=== PATIENT | male | born 2000 | race Caucasian/White ===

== ENCOUNTER 2019-09-01 17:18 | Emergency (ER) | payer SELFPAY ==
[2019-09-01 17:27] VITALS: BP 125/85; TEMP 97.6
[2019-09-01] MEDS ORDERED: IPRATROPIUM/ALBUTEROL 3 ML VIAL NEB ONE (17:27)
[2019-09-01] MEDS ORDERED: predniSONE 20 MG TAB PO ONE (17:45)
[2019-09-01] MEDS ORDERED: CETIRIZINE HCL 10 MG TAB PO ONE (17:45)
[2019-09-01] MEDS ORDERED: MONTELUKAST 10 MG TAB PO ONE (17:45)
--- NOTE | 2019-09-01 17:47 | ED.PDOC ---
History of Present Illness - General Chief Complaint: Respiratory Problem Time Seen by Provider: 09/01/19 17:27 Source: patient Exam Limitations: no limitations - History of Present Illness Initial Comments: the patient is a 18-year-old male presenting to the emergency room secondary to shortness of breath. Patient has been having a difficult time breathing last few days. He has never been diagnosed with asthma but he does definitely have seasonal allergies. He has had episodes of shortness of breath past. No fever. No productive cough. Nares are blue and boggy with clear rhinorrhea. Posterior oropharynx is clear. He does have scattered wheezes and decreased air movement bilaterally. Timing/Duration: other - 3 days Severity: moderate Improving Factors: nothing Worsening Factors: nothing Associated Symptoms: cough, shortness of breath Allergies/Adverse Reactions: Allergies NO KNOWN ALLERGY Allergy (Verified 09/01/19 17:27) Home Medications: Ambulatory Orders Albuterol Inhaler [Ventolin Hfa Inhaler] 2 puff INH Q4H PRN #1 inh 09/01/19 Montelukast [Singulair] 10 mg PO DAILY #14 tab 09/01/19 predniSONE [Prednisone] 20 mg PO DAILY #3 tab 09/01/19 Review of Systems - Review of Systems Constitutional: States: no symptoms reported EENTM: States: see HPI Respiratory: States: see HPI Cardiology: States: no symptoms reported Gastrointestinal/Abdominal: States: no symptoms reported Genitourinary: States: no symptoms reported Musculoskeletal: States: no symptoms reported Skin: States: no symptoms reported Neurological: States: no symptoms reported Endocrine: States: no symptoms reported Hematologic/Lymphatic: States: no symptoms reported All other Systems: No Change from Baseline Past Medical History (General) - Patient Medical History Hx Stroke: No Hx Congestive Heart Failure: No Hx Diabetes: No - Vaccination History Hx Influenza Vaccination: No Hx Pneumococcal Vaccination: No - Social History Hx Tobacco Use: Yes Hx Alcohol Use: Yes - Social use Family Medical History - Family History Father Family History: Unknown Living Status: Still Living Physical Exam - Physical Exam General Appearance: Alert, Comfortable, No apparent distress Eye Exam: bilateral normal Ears, Nose, Throat: hearing grossly normal, normal pharynx, nasal congestion Neck: full range of motion, supple Respiratory: lungs clear, normal breath sounds, no respiratory distress, no accessory muscle use Cardiovascular/Chest: normal peripheral pulses, regular rate, rhythm, no edema Peripheral Pulses: radial,right: 2+, radial,left: 2+ Gastrointestinal/Abdominal: non tender, soft Rectal Exam: deferred Back Exam: no CVA tenderness, no vertebral tenderness Extremity: non-tender, normal inspection, no pedal edema, normal capillary refill 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 The patient does most likely have allergy induced asthma. He is going to be written for an albuterol inhaler to use 3 puffs every couple of hours if needed. he will also be written for 3 days of oral prednisone and 2 weeks of oral Singulair for the asthma and allergies. 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 additionally the patient does have a fever blister in the right nostril. He was given 1 dose of Valtrex in treatment for it here today. the patient needs to wait until the fever blister in his nose has cleared up before he uses the Singulair, Rhinocort or Flonase. He can also pick and shovel worker [id number] daily Zyrtec to take once daily to help reduce his allergies. ER warnings were given. follow-up with primary care doctor next week. no smoking or vaping. luis felipe valencia [phone] 09/01/19 17:57 - Results/Orders Results/Orders: two-view chest x-ray shows no significant infiltrate. He does have some air trapping. Departure - Departure Clinical Impression: Herpes labialis without complication Asthma with exacerbation Qualifiers: Asthma severity: moderate Asthma persistence: unspecified Qualified Code(s): J45.901 - Unspecified asthma with (acute) exacerbation Allergic rhinitis Qualifiers: Allergic rhinitis trigger: unspecified Allergic rhinitis seasonality: seasonal Qualified Code(s): J30.2 - Other seasonal allergic rhinitis Disposition: Discharge to Home or Self Care Condition: Fair Departure Forms: ED Discharge - Pt. Copy, Patient Portal Self Enrollment Instructions: DI for Asthma -- Adult, Seasonal Allergies (DC), Cold Sores (Oral Herpes) (DC) Diet: regular diet Activity: increase activity as tolerated Prescriptions: Albuterol Inhaler [Ventolin Hfa Inhaler] 2 puff INH Q4H PRN #1 inh PRN Reason: Shortness Of Breath Montelukast [Singulair] 10 mg PO DAILY #14 tab predniSONE [Prednisone] 20 mg PO DAILY #3 tab Home Medications: Ambulatory Orders Albuterol Inhaler [Ventolin Hfa Inhaler] 2 puff INH Q4H PRN #1 inh 09/01/19 Montelukast [Singulair] 10 mg PO DAILY #14 tab 09/01/19 predniSONE [Prednisone] 20 mg PO DAILY #3 tab 09/01/19 Additional Instructions: the patient is a 18-year-old male with what appears to be a reactive airway exacerbation. The patient does most likely have allergy induced asthma. He is going to be written for an albuterol inhaler to use 3 puffs every couple of hours if needed. he will also be written for 3 days of oral prednisone and 2 weeks of oral Singulair for the asthma and allergies. He can also pick and shovel worker [id number] Rhinocort or Flonase nasal spray to use 1 spray per nostril twice daily for his allergic rhinitis. additionally the patient does have a fever blister in the right nostril. He was given 1 dose of Valtrex in treatment for it here today. the patient needs to wait until the fever blister in his nose has cleared up before he uses the Singulair, Rhinocort or Flonase. He can also pick and shovel worker [id number] daily Zyrtec to take once daily to help reduce his allergies. ER warnings were given. follow-up with primary care doctor next week. no smoking or vaping.
--- NOTE | 2019-09-01 17:52 | RAD ---
EXAM DESCRIPTION: Chest,2 Views CLINICAL HISTORY: sob, 3 days COMPARISON: None TECHNIQUE: PA/lateral FINDINGS: There is no acute appearing cardiac or pulmonary abnormality. Heart size is normal with normal pulmonary vascularity. No pleural effusion or pneumothorax. Lungs are hyperexpanded with no consolidating infiltrate. Lateral view shows intact sternum and T-spine. IMPRESSION: Hyperexpanded lungs. No consolidating infiltrate. Electronically signed by: Mk Bueno MD 09/01/2019 5:50 PM [employer]PER[employer]
[2019-09-01] MEDS ORDERED: valACYclovir 500 MG TAB PO ONE (17:56)
[2019-09-01 19:10] VITALS: O2SAT 95
== END 2019-09-01 18:24 | disposition home or self-care (01) ==
LOC: ER 17:18
DX: J45.901 Unspecified asthma with (acute) exacerbation (principal); J30.2 Other seasonal allergic rhinitis; B00.1 Herpesviral vesicular dermatitis; Z87.891 Personal history of nicotine dependence
CPT/HCPCS: 71046; 94640; J7512; J7620

== ENCOUNTER 2019-09-13 06:00 | Emergency (ER) | payer SELFPAY ==
[2019-09-13 06:11] VITALS: TEMP 97.2
[2019-09-13] MEDS: ALBUTEROL SULFATE 2.5 MG/3 ML VIAL NEB ONE (06:21)
[2019-09-13 06:33] VITALS: O2SAT 98
--- NOTE | 2019-09-13 06:49 | ED.PDOC ---
History of Present Illness - General Chief Complaint: Respiratory Problem Stated Complaint: difficulty breathing Time Seen by Provider: 09/13/19 06:34 Source: patient Exam Limitations: no limitations - History of Present Illness Initial Comments: 18 yo M who presents for SOB and wheezing onset this am. Pt reports being told he has asthma earlier this month, though reports similar episodes in past throughout his life, at a visit here in the ED. He states this time it flared because of the weather change. He was prescribed singular, albuterol inhaler, and steroids. He still has all the prescriptions in his car and does not intend to fill them, he states that he has no money and will just keep coming back to the ED, that he has no insurance and "we wont get any money out of him." I explained that controlling his sx are important and explained the gravity of not taking care of his asthma at home. Associated chronic congestion. Denies recent travel, sick contacts. Was told by mom to get flonase however has not picked that up at the store either. Pt has already received a breathing treatment prior to my assessment of him and all sx have resolved. Denies f/c, cough, CP, abd pain, n/v/d. Denies vaping, +cigarette use. Allergies/Adverse Reactions: Allergies NO KNOWN ALLERGY Allergy (Verified 09/01/19 17:27) Home Medications: Ambulatory Orders Albuterol Inhaler [Ventolin Hfa Inhaler] 2 puff INH Q4H PRN #1 inh 09/01/19 Montelukast [Singulair] 10 mg PO DAILY #14 tab 09/01/19 predniSONE [Prednisone] 20 mg PO DAILY #3 tab 09/01/19 Review of Systems - Review of Systems Constitutional: Denies: chills, fever EENTM: States: nose congestion. Denies: ear pain, ear discharge, throat pain Respiratory: States: short of breath, wheezing. Denies: cough Cardiology: Denies: chest pain, edema, palpitations Gastrointestinal/Abdominal: Denies: abdominal pain, diarrhea, nausea, vomiting Genitourinary: Denies: dysuria, frequency Musculoskeletal: Denies: neck pain Skin: Denies: rash Neurological: Denies: headache, numbness, weakness Past Medical History (General) - Patient Medical History Hx Stroke: No Hx Congestive Heart Failure: No Hx Diabetes: No Surgical History: no surgical history - Vaccination History Hx Influenza Vaccination: No Hx Pneumococcal Vaccination: No - Social History Hx Tobacco Use: Yes Hx Alcohol Use: Yes - Social use Family Medical History - Family History Father Family History: Unknown Living Status: Still Living Physical Exam - Physical Exam General Appearance: Alert, Comfortable, No apparent distress, Well Developed, Well Nourished Eyes, Ears, Nose, Throat Exam: PERRL/EOMI, TMs normal, pharynx normal, other - dry nasal mucosa Neck: non-tender, full range of motion, supple, normal inspection Respiratory: chest non-tender, lungs clear, normal breath sounds, no respiratory distress, no accessory muscle use Cardiovascular/Chest: normal peripheral pulses, regular rate, rhythm, no edema, no gallop, no JVD, no murmur Peripheral Pulses: radial,right: 2+, radial,left: 2+ Gastrointestinal/Abdominal: non tender, soft Extremity: normal range of motion, non-tender, normal inspection, no pedal edema, no calf tenderness Neurologic: no motor/sensory deficits, alert, normal mood/affect Skin Exam: normal color, warm/dry Lymphatic: no adenopathy Progress - Progress Progress: I have explained and reviewed all results with the pt. I highly encouraged pt to fill prescriptions, to get flonase OTC. I explained that emergent conditions may arise and to return to the ER for new, worsening, or any persistent conditions. I've explained the importance of f/u for recheck. All questions and concerns addressed at this time. Pt understands and agrees with plan. Pt well appearing, NAD, is stable for discharge. Sherie Maki MD Emergency Medicine Physician Billing Number [id number] - Results/Orders Results/Orders: CXR: EXAM DESCRIPTION: Chest,2 Views CLINICAL HISTORY: 18 years Male difficulty breathing COMPARISON: Two-view chest dated 09/01/2019 TECHNIQUE: PA and late ral views of the chest are obtained. Heart: The heart is normal in size and configuration. Vasculature: []There is no evidence of aortic aneurysm or acute findings. The pulmonary vascularity is normal. Mediastinum: No evidence of mass or adenopathy. Lungs: The lungs are hyperinflated and hyperlucent which has increased in the interim and suggests reactive airway disease. No focal consolidation is seen. Pleural spaces: There are no pleural effusions. There are no pneumothoraces. Osseous structures: There is no evidence of acute fracture, osseous destruction or osteoblastic lesions. Tubes and catheters: None Upper abdomen: No acute findings. Chest wall: Unremarkable. IMPRESSION: Hyperinflation of the lungs suggesting reactive airway disease without acute consolidation. Electronically signed by: Mary Alice Olson MD 09/13/2019 6:46 AM [employer] Departure - Departure Clinical Impression: Acute bronchospasm Asthma exacerbation Qualifiers: Asthma severity: unspecified severity Asthma persistence: unspecified Qualified Code(s): J45.901 - Unspecified asthma with (acute) exacerbation Time of Disposition: 06:52 Disposition: Discharge to Home or Self Care Health Concerns: condition: stable Departure Forms: ED Discharge - Pt. Copy, Patient Portal Self Enrollment Instructions: DI for Asthma -- Adult Home Medications: Ambulatory Orders Albuterol Inhaler [Ventolin Hfa Inhaler] 2 puff INH Q4H PRN #1 inh 09/01/19 Montelukast [Singulair] 10 mg PO DAILY #14 tab 09/01/19 predniSONE [Prednisone] 20 mg PO DAILY #3 tab 09/01/19 Additional Instructions: Follow up: [facility] As needed, if symptoms worsen Your Primary Care Physician Make appointment, two days, for follow up
[2019-09-13] MEDS: DEXAMETHASONE INJ 10 MG/ML VIAL PO ONE (06:57)
[2019-09-13 07:01] VITALS: BP 124/86
== END 2019-09-13 06:57 | disposition home or self-care (01) ==
LOC: ER 06:00
DX: J45.901 Unspecified asthma with (acute) exacerbation (principal); F17.210 Nicotine dependence, cigarettes, uncomplicated
CPT/HCPCS: 71046; 94640; J1100; J7611

== ENCOUNTER 2020-05-18 12:16 | Emergency (ER) | payer SELFPAY ==
[2020-05-18] MEDS ORDERED: IPRATROPIUM BROMIDE NEBS 0.5 MG/2.5 ML VIAL NEB ONE (12:36)
[2020-05-18] MEDS ORDERED: ALBUTEROL SULFATE NEBS (ED DISPENSE) 2.5 MG/3 ML VIAL NEB ONE (12:37)
--- NOTE | 2020-05-18 12:40 | ED.PDOC ---
History of Present Illness - General Chief Complaint: Respiratory Problem Stated Complaint: "I am short of breath" Time Seen by Provider: 05/18/20 12:27 Additional Information: Patient is a 19-year-old male who presents to the ED with chief complaint of asthma exacerbation. Patient indicates he has a history of asthma and he awoke this morning with wheezing and chest tightness consistent with his typical asthma. Patient denies fever, chills, nausea, vomiting, chest pain, cough. Patient is a smoker but denies intrinsic heart or lung disease other than asthma. He is otherwise asymptomatic. - History of Present Illness Allergies/Adverse Reactions: Allergies NO KNOWN ALLERGY Allergy (Verified 05/18/20 12:31) Review of Systems - Review of Systems Constitutional: States: no symptoms reported. Denies: chills, fever EENTM: States: no symptoms reported Respiratory: States: see HPI, short of breath, wheezing Cardiology: Denies: chest pain, palpitations Gastrointestinal/Abdominal: States: no symptoms reported. Denies: abdominal pain, nausea, vomiting Genitourinary: States: no symptoms reported Musculoskeletal: States: no symptoms reported All other Systems: Reviewed and Negative Past Medical History (General) - Patient Medical History Hx Stroke: No Hx Asthma: Yes Hx of COPD: No Hx Cardiac Disorders: No Hx Congestive Heart Failure: No Hx Hypertension: No Hx Diabetes: No Hx Cancer: No - Vaccination History Hx Tetanus, Diphtheria Vaccination: No Hx Influenza Vaccination: No Hx Pneumococcal Vaccination: No - Social History Hx Tobacco Use: Yes Hx Alcohol Use: Yes Hx Substance Use: Yes Hx Substance Use Treatment: Yes Hx Depression: No - Female History Patient is a Female of Child Bearing Age (10 -59 yrs old): No Patient : No Family Medical History - Family History Father Family History: Unknown Living Status: Still Living Physical Exam - Physical Exam General Appearance: Alert, Comfortable, No apparent distress, Well Developed, Well Nourished ENT Exam: normal ENT inspection, pharynx normal Neck: supple, normal inspection Respiratory: no respiratory distress, wheezing - Moderate bilaterally Cardiovascular/Chest: normal peripheral pulses, regular rate, rhythm, no edema, no gallop, no JVD, no murmur Gastrointestinal/Abdominal: normal bowel sounds, non tender, soft Extremity: normal inspection, no pedal edema 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 Patient's wheezing has resolved on auscultation and clinically patient with asthma exacerbation, resolved. I will discharge with albuterol inhaler and prednisone and patient to follow-up with family practice as needed. Vital signs stable, patient is NAD and looks clinically well and I believe is safe for discharge with outpatient follow-up. Follow-up instructions, discharge instructions and return to ED precautions discussed with patient. Patient voices understanding and willingness to comply with instructions. All questions answered. Patient is happy with plan. Departure - Departure Clinical Impression: Asthma with acute exacerbation Qualifiers: Asthma severity: moderate Asthma persistence: unspecified Qualified Code(s): J45.901 - Unspecified asthma with (acute) exacerbation Time of Disposition: 14:19 Disposition: Discharge to Home or Self Care Departure Forms: ED Discharge - Pt. Copy, Patient Portal Self Enrollment Instructions: Asthma, Adult (DC)
[2020-05-18] MEDS: methylPREDNISolone SODIUM SUC 125 MG/2 ML VIAL IM ONE ×3 (12:45→13:02)
[2020-05-18] MEDS ORDERED: ALBUTEROL SULFATE 2.5 MG/3 ML VIAL NEB ONE ×2 (13:08→13:09)
[2020-05-18 13:15] VITALS: O2SAT 97
[2020-05-18 14:27] VITALS: BP 105/43; TEMP 97.6
== END 2020-05-18 14:27 | disposition home or self-care (01) ==
LOC: ER 12:16
DX: J45.901 Unspecified asthma with (acute) exacerbation (principal); F17.200 Nicotine dependence, unspecified, uncomplicated
CPT/HCPCS: 94640; J2930; J7611; J7644

== ENCOUNTER 2020-07-22 13:44 | Emergency (ER) | payer SELFPAY ==
[2020-07-22 14:06] VITALS: BP 132/87; TEMP 97.7; O2SAT 99
== END 2020-07-22 13:50 | disposition home or self-care (01) ==
LOC: ER 13:44
DX: R06.02 Shortness of breath (principal); Z53.21 Procedure and treatment not carried out due to patient leaving prior to being seen by health care provider

== ENCOUNTER 2020-07-23 08:32 | Emergency (ER) | payer SELFPAY | END 2020-07-23 08:39 | disposition left against medical advice (07) | LOC: ER 08:32 | DX: R06.00 Dyspnea, unspecified (principal); Z53.21 Procedure and treatment not carried out due to patient leaving prior to being seen by health care provider ==